=== PATIENT | female | born 1960 | race Caucasian/White ===

== ENCOUNTER 2021-10-08 15:01 | Emergency (ER) | payer SELFPAY ==
[~2021-10-08] VITALS: Ht 160 cm; Wt 76.8 kg
[2021-10-08 15:19] VITALS: BP 138/85; TEMP 97.2
[2021-10-08 15:49] VITALS: PULSE 75
== END 2021-10-08 15:49 | disposition home or self-care (01) ==
LOC: COL.ER 15:01
DX: S76.312A Strain of muscle, fascia and tendon of the posterior muscle group at thigh level, left thigh, initial encounter (principal); F17.200 Nicotine dependence, unspecified, uncomplicated; X50.9XXA Other and unspecified overexertion or strenuous movements or postures, initial encounter; Y93.01 Activity, walking, marching and hiking; Y92.512 Supermarket, store or market as the place of occurrence of the external cause; Y99.0 Civilian activity done for income or pay